=== PATIENT | female | born 1960 | race Hispanic/Latino ===

== ENCOUNTER 2019-03-24 13:34 | Outpatient (CLI) | payer BC ==
--- NOTE | 2019-03-24 14:50 | MMO ---
Bilateral MAMMO Bilat Screen [facility]. CLINICAL HISTORY: Patient is 59 years old and is seen for screening. The patient has no family history of breast cancer. The patient has no personal history of cancer. The patient has a history of right Excisional Biopsy in 1982 - benign. VIEWS: The views performed were: bilateral craniocaudal with tomosynthesis and bilateral mediolateral oblique with tomosynthesis. FILMS COMPARED: The present examination has been compared to prior imaging studies performed at [facility] on 10/12/2008, 12/12/2009, 10/11/2013 and 08/29/2015. This study has been interpreted with the assistance of computer-aided detection. MAMMOGRAM FINDINGS: There are scattered fibroglandular densities. There are stable benign appearing calcifications seen in both breasts. There are also vascular calcifications. There are no suspicious masses, suspicious calcifications, or new areas of architectural distortion. IMPRESSION: THERE IS NO MAMMOGRAPHIC EVIDENCE OF MALIGNANCY. A ROUTINE FOLLOW-UP MAMMOGRAM IN 1 YEAR IS RECOMMENDED. THE RESULTS OF THIS EXAM WERE SENT TO THE PATIENT. ACR BI-RADS Category 2 - Benign finding MAMMOGRAPHY NOTE: 1. A negative mammogram report should not delay a biopsy if a dominant of clinically suspicious mass is present. 2. Approximately 10% to 15% of breast cancers are not detected by mammography. 3. Adenosis and dense breasts may obscure an underlying neoplasm. Reported by: LOKI LATHAM MD Electonically Signed: [id number]
== END 2019-03-24 13:35 | disposition home or self-care (01) ==
LOC: BICMAMMO 13:34
PROVIDERS: ATTEND Family Medicine
DX: Z12.31 Encounter for screening mammogram for malignant neoplasm of breast (principal)
CPT/HCPCS: 77063; 77067

== ENCOUNTER 2019-10-24 15:08 | Outpatient (CLI) | payer BC ==
--- NOTE | 2019-10-24 16:33 | RAD ---
THREE VIEWS LEFT TOES: Date: 10-24-2019 Comparison: None History: Traumatic echinosis of the left foot. FINDINGS: Three views of the third, fourth, and fifth toes on the left provided. There is soft tissue swelling noted involving the third toe and to a lesser degree, the fourth and fifth toes. No radiopaque foreig n body or subcutaneous gas. No displaced fracture or dislocation. IMPRESSION: Soft tissue swelling with no displaced fracture or dislocation. If there is clinical concern for oste omyelitis, follow up MRI suggested. POS: [facility]
== END 2019-10-24 15:09 | disposition home or self-care (01) ==
LOC: BICRAD 15:08
PROVIDERS: ATTEND Family Medicine
DX: S90.122A Contusion of left lesser toe(s) without damage to nail, initial encounter (principal); M79.89 Other specified soft tissue disorders